=== PATIENT | female | born 1960 | race Caucasian/White ===

== ENCOUNTER 2017-05-23 09:55 | Emergency (ER) | payer BC, OTHER ==
--- OUTSIDE RECORDS SUMMARY | 2017-05-23 10:30 | XMS REPORT ---
:1960 External Reference #:[id number] Author Organization [facility] Address [address], [address] [place] [address] Phone [phone] Care Team Providers Name Role Phone Bryan Slaughter DO Care Team Information Medical Officer Psychiatry Unavailable Bryan Slaughter DO Primary Care Physician Unavailable Payers Type Date Identification Numbers Payment Subscriber Provider Workers Compensation Onset: Policy Number: [facility] Taina Yanez 2017 [id number] Group Name: [address] [address] PayID: [id number] [place] [address] Medigap Part B Policy Number: [id number] [facility] Taina Yanez Group Name: [id number] [address] PayID: [id number] [place] [address] Problems Date Description Provider Status Onset: 02/18/2017 Closed fracture of distal end of radius Guille Mills M.D. 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 times a day as needed after meals Levothyroxine Active Tablets 125mcg [place], Sodium 000 Bryan Veliz DO Metformin HCL Active Tablets 500mg Jorge L Pedroza MD Calcium 1000 + D Active Tablets 1000-800mg 1 tab by Unknown 000 -Unit mouth every daily Flaxseed Oil Active Capsules 1000mg Unknown 000 Vitamin C Active Chewtabs 500mg 1 by Unknown 000 mouth every day Ibuprofen Hx Tablets 600mg Jorge L Patino [place] 017 Vital Signs Date Vital Result Comment 05/13/2017 BP Systolic Sitting Right Arm 123 mmHg BP Diastolic Sitting Right Arm 89 mmHg Heart Rate 72 /min Height 64 inches 5'4" Weight 189.00 lb BMI (Body Mass Index) 32.4 kg/m2 BSA (Body Surface Area) 1.91 m2 [place] body weight in kilograms 54 03/31/2017 BP Systolic 142 mmHg BP Diastolic 80 mmHg Body Temperature 98.4 F Heart Rate 84 /min Respiratory Rate 15 /min Height 64 inches 5'4" Weight 180.00 lb BMI (Body Mass Index) 30.9 kg/m2 BSA (Body Surface Area) 1.87 m2 [place] body weight in kilograms 54 02/18/2017 BP Systolic Sitting Left Arm 129 mmHg BP Diastolic Sitting Left Arm 80 mmHg Heart Rate 70 /min Height 64 inches 5'4" Weight 184.00 lb BMI (Body Mass Index) 31.6 kg/m2 BSA (Body Surface Area) 1.89 m2 [place] body weight in kilograms 54 02/16/2017 BP Systolic Sitting Right Arm 123 mmHg BP Diastolic Sitting Right Arm 85 mmHg Heart Rate 75 /min Height 64 inches 5'4" Weight 184.00 lb BMI (Body Mass Index) 31.6 kg/m2 BSA (Body Surface Area) 1.89 m2 [place] body weight in kilograms 54 Results Test Date Test Result H/L Range Note Glycohemoglobin A1c 08/28/2016 Glycohemoglobin (A1c) 5.9 % 4.2-6.3 1, 2 eAG 123 mg/dL 1 Laboratory test finding 08/28/2016 Thyroid Stim Hormone 1.03 uIU/mL 0.30- 4.20 1 Free T3 2.30 pg/mL 2.18-3.98 1 Free T4 1.00 ng/dL 0.76-1.46 1 1 E03.9, E66.9 2 Elevated levels of HbA1c suggest the need for more aggressive treatment of glycemia. The [place] [employer] recommends that a primary goal of therapy should be a HbA1c of <7% and that physicians should re-evaluate the treatment regimen in patients with HbA1c values consistently >8%. Procedures Date CPT Code Description Status 03/31/2017 36587 Radiology, Wrist Two Views Completed 03/17/2017 38930 Radiology, Wrist Two Views Completed 03/04/2017 72060 Radiology, Wrist Two Views Completed 02/20/2017 76654 Distal Radial extra-articular open fracture w/internal Completed fixation 02/16/2017 01633 Fracture Radial&Ulner shaft closed w/o manipulation Completed 05/25/2013 Mammogram Completed 11/18/2010 75422 Anesthesia, Hysteroscopy, Hystersalpingography Completed 11/15/2010 31268 EKG Interpretation And Report Only Completed Encounters Type Date Location Provider CPT E/M Dx Office Visit 04/05/2009 8:45a Surgical Office Sebastian Warner M.D. [id number] 454.9 Office Visit 03/15/2009 9:00a Surgical Office Sebastian Warner M.D. [id number] 239.2 454.9 Plan of Care Future Appointment(s):08/12/2017 2:45 pm - Guille Mills M.[facility]. [facility]/13/2017 - Guille Mills M.D.[id number] Ot fx of lower end left rad, subs for clos fx w routn heal
[2017-05-23 10:48] VITALS: BP 125/58
--- NOTE | 2017-05-23 11:07 | UC ---
Throat Pain/Nasal Kaden HPI - HPI Summary HPI Summary: 56 y/o female presents to the urgent care c/o sore throat, dry cough for the past 3 days. Pt reports today after taking a hot shower she developed chills, body aches and fatigue. Pain w/swallowing is 8/10. She took advil around 0700 this morning to alleviate symptoms. Pt denies SOB, CHILEL, chest pain, abdominal pain, N/V/D - History of Current Complaint Chief Complaint: UCGeneralIllness Stated Complaint: SORE THROAT,TIRED Time Seen by Provider: 05/23/17 11:00 Hx Obtained From: Patient Hx Last Menstrual Period: 2 yrs ?: No Onset/Duration: Gradual Onset, Lasting Days - 3, Still Present, Worse Since - this morning Severity: Moderate Pain Intensity: 8 Pain Scale Used: 0-10 Numeric Cough: Nonproductive Associated Signs & Symptoms: Positive: Nasal Discharge, Fever - Epiglottits Risk Factors Epiglottis Risk Factors: Negative - Allergies/Home Medications Allergies/Adverse Reactions: Allergies Allergy/AdvReac Type Severity Reaction Status Date / Time No Known Allergies Allergy Verified 05/23/17 10:38 Home Medications: Home Medications Ascorbic Acid TAB* [Vitamin C TAB*] 500 mg PO DAILY 05/23/17 [History Confirmed 05/23/17] Dextromethorphan-Phenylephrine [Sudafed PE Preesure+Pain+ 10-5-325 mg] 2 tab PO DAILY PRN 05/23/17 [History Confirmed 05/23/17] metFORMIN* [Glucophage 500 MG TAB *] 500 mg PO DAILY 05/23/17 [History Confirmed 05/23/17] PMH/Surg Hx/FS Hx/Imm Hx Previously Healthy: Yes Endocrine History: Diabetes, Hypothyroidism - Surgical History Surgical History: Yes Surgery Procedure, Year, and Place: right ovary; c section x 2. SX REPAIR OF LEFT ARM FX - Family History Known Family History: Positive: None - Pt denies FMHX - Social History Occupation: Employed Full-time Lives: With Family Alcohol Use: None Substance Use Type: None Smoking Status (MU): Former Smoker Type: Cigarettes Amount Used/How Often: 1/2ppd When Did the Patient Quit Smoking/Using Tobacco: 2014 - Immunization History Most Recent Influenza Vaccination: has not had Review of Systems Constitutional: Fever, Fatigue, Other - body aches Skin: Negative Eyes: Negative ENT: Sore Throat Respiratory: Cough - dry cough Cardiovascular: Negative Gastrointestinal: Negative Genitourinary: Negative Motor: Negative Neurovascular: Negative Musculoskeletal: Negative Neurological: Headache Psychological: Negative Is Patient Immunocompromised?: No All Other Systems Reviewed And Are Negative: Yes Physical Exam Triage Information Reviewed: Yes Vital Signs: Initial Vital Signs Temp 98.9 F 05/23/17 10:43 Pulse 100 05/23/17 10:43 Resp 20 05/23/17 10:43 BP 125/58 05/23/17 10:43 Pulse Ox 96 05/23/17 10:43 - Additional Comments VITAL SIGNS: Reviewed. GENERAL: Patient is a well developed and nourished female who is sitting comfortable in the examining table. Patient is not in any acute respiratory distress. HEAD AND FACE: No signs of trauma. No ecchymosis, hematomas or skull depressions. No sinus tenderness. EYES: PERRLA, EOMI x 2, No injected conjunctiva, no nystagmus. No photophobia. EARS: Hearing grossly intact. Ear canals and tympanic membranes are within normal limits. MOUTH: Positive pharynx with erythema, mild exudates, mild palatal petechiae. B/ L tonsillar enlargement with mild exudate. Uvula in midline. NECK: Supple, trachea is midline, Positive anterior cervical lymphadenopathy, no JVD, no carotid bruit, no c-spine tenderness, neck with full ROM. No meningeal signs, no Kernig's or brudzinskis signs. CHEST: Symmetric, no tenderness at palpation LUNGS: Clear to auscultation bilaterally. No wheezing or crackles. CVS: Regular rate and rhythm, S1 and S2 present, no murmurs or gallops appreciated. ABDOMEN: Soft, non-tender. No signs of distention. No rebound no guarding, and no masses palpated. Bowel sounds are normal. EXTREMITIES: FROM in all major joints, no edema, no cyanosis or clubbing. NEURO: Alert and oriented x 3. No acute neurological deficits. Speech is normal and follows commands. SKIN: Dry and warm Throat Pain/Nasal Course/Dx - Course Course Of Treatment: 56 y/o female presents to the urgent care c/o sore throat, dry cough for the past 3 days. Pt reports today after taking a hot shower she developed chills, body aches and fatigue. Pain w/swallowing is 8/10. She took advil around 0700 this morning to alleviate symptoms. Pt denies SOB, CHILEL, chest pain, abdominal pain, N/V/D. Hx obtained. Pt with pharyngitis on examination. Rapid strep ordered: result: positive. Strep pharyngitis. Rx Amoxicillin PO and Ibuprofen PO for pain and swelling. PT Advised on hand washing to avoid spreading. Also advised to rest, eat well and avoid strenuous exercise. If symptoms do not improve or worsen advised to return to the urgent care or f/u with her PCP for further evaluation and treatment. PT understood and agreed. - Differential Dx/Diagnosis Differential Diagnosis/HQI/PQRI: Influenza, Laryngitis, Otitis Media, Pharyngitis, Sinusitis, Tonsillitis, URI Provider Diagnoses: 1- Strep pharyngitis Discharge - Discharge Plan Condition: Stable Disposition: HOME Prescriptions: Amoxicillin PO (*) [Amoxicillin 875 MG (*)] 875 mg PO BID #20 tab Ibuprofen TAB* [Motrin TAB* 800 MG] 800 mg PO Q6H PRN #20 tab PRN Reason: Sore Throat Patient Education Materials: Strep Throat (ED) Referrals: Sasha Issa MD [Primary Care Provider] - If Needed Additional Instructions: 1- Please take the full course of the antibiotic to avoid resistance. 2-Please take ibuprofen PO q6-8hrs prn as instructed after meals to alleviate pain and swelling. Increase fluid intake, eat well, rest and avoid strenuous exercise 3-If symptoms do not improve or worsen please return to the urgent care or f/u with your PCP for further evaluation and treatment.
== END 2017-05-23 11:46 | disposition home or self-care (01) ==
LOC: UCCORT 09:55
DX: J02.0 Streptococcal pharyngitis (principal); E11.9 Type 2 diabetes mellitus without complications; E03.9 Hypothyroidism, unspecified; Z87.891 Personal history of nicotine dependence; Z79.84 Long term (current) use of oral hypoglycemic drugs
CPT/HCPCS: 87651; 99212; G0463